=== PATIENT | male | born 1990 | race Caucasian/White ===

== ENCOUNTER → 2024-03-15 | Outpatient (CLI) | payer OTHER, MEDICAID, SELFPAY ==
[2024-03-15 10:55] LABS: Basophils % (Auto) 0 % (0-2.5); Eosinophils # (Auto) 0.1 Thou/mm3 (0.0-0.5); Eosinophils % (Auto) 1 % (0-10); Hematocrit 49.5 % (41.0-53.0); Immature Granulocytes % (Auto) 0 % (0-0); Immature Granulocytes Auto 0.01 Thou/mm3 (0.00-0.00); Lymphocytes # (Auto) 2.4 Thou/mm3 (1.0-4.8); Lymphocytes % (Auto) 33 % (10-50); Mean Corpuscular HGB Conc 34.3 g/dl (31.0-37.0); Mean Corpuscular Volume 85 fL (80-100); Monocytes # (Auto) 0.6 Thou/mm3 (0.0-0.8); Monocytes % (Auto) 8 % (0-12); Neutrophils # (Auto) 4.1 Thou/mm3 (1.8-7.7); Neutrophils % (Auto) 57 % (37-80); Nucleated Red Blood Cell % 0 /100 WBC (0); Platelet Count 307 Thou/mm3 (140-440); RDW Standard Deviation 38.7 fL (35.1-43.9); Red Blood Count 5.86 Miln/mm3 (4.50-5.90); White Blood Count 7.2 Thou/mm3 (3.8-10.6)
[2024-03-15 11:11] LABS: Alanine Aminotransferase 43 U/L (10-49); Albumin, Serum 4.9 gm/dL (3.5-5.0); Alkaline Phosphatase 91 U/L (46-116); Anion Gap 7 (7-16); Aspartate Amino Transferase 15 U/L (0-34); BUN/Creatinine Ratio 14 Ratio (12-20); Bilirubin,Total 0.6 mg/dL (0.3-1.2); Blood Urea Nitrogen 13 mg/dL (9-23); Calcium 10.4 mg/dL (8.3-10.6); Calcium (Corrected) 10.4 mg/dL (8.5-10.1); Carbon Dioxide 26.7 mMol/L (20.0-31.0); Chloride 107 mMol/L (98-107); Creatinine (Component) 0.9 mg/dL (0.6-1.3); Globulin 2.5 gm/dL (2.3-3.5); Glucose 97 mg/dL (74-106); Osmolality,Calculated 281 (275-295); Potassium 4.2 mMol/L (3.4-5.1); Sodium 141 mMol/L (136-145); Total Protein 7.4 gm/dL (5.7-8.2); eGFR > 60 See Note
== END | disposition home or self-care (01) ==
LOC: SCTO 09:56
PROVIDERS: PCP Family Medicine; Referring Provider Nurse Practitioner Family; Visit Provider Nurse Practitioner Family
DX: D58.2 Other hemoglobinopathies (principal)
CPT/HCPCS: 36415; 80053; 85025

== ENCOUNTER 2024-03-24 14:00 | Outpatient (RCR) | payer OTHER, MEDICAID, SELFPAY | END 2024-04-13 23:59 | disposition home or self-care (01) | LOC: SCTC 14:00 | PROVIDERS: PCP Family Medicine; Referring Provider Family Medicine; Visit Provider Nurse Practitioner Family | DX: D75.1 Secondary polycythemia (principal); G80.9 Cerebral palsy, unspecified; Z99.3 Dependence on wheelchair; Z98.2 Presence of cerebrospinal fluid drainage device; I10 Essential (primary) hypertension | CPT/HCPCS: 99212; G0463 ==

== ENCOUNTER → 2024-06-10 | Outpatient (CLI) | payer MEDICARE, MEDICAID, SELFPAY ==
--- NOTE | 2024-06-10 07:30 | XR_ITS ---
Examination: CT brain head without contrast. 2-D sagittal coronal reconstructions Date and time of exam:June 10, 2024 0818 hrs. Comparison July 16, 2021 Diagnosis hydrocephalus seizures noted on May 07, 2024 CTDI: vol (mGy):49.4 DLP: (mGycm):985 Technique: Multiple CT axial sections of the brain have been obtained, 5 mm slice thickness. Contrast has not been administered. 2-D sagittal, coronal reconstructions have been obtained Low dose protocols were performed. One or more of the following dose reduction techniques were used; automated exposure control, adjustment of the mA and/or KV according to patient size, use of iterative reconstruction technique. Findings: No significant ventricular enlargement. Stable large area of encephalomalacia in the left posterior temporal parietal lobe The shunt tube tip projects in the anterior margin of the large area of encephalomalacia The ventricles are not enlarged There is shift of the frontal horns to the left 5 mm which likely relates to the large area of encephalomalacia in the left cerebral hemisphere Intra-axial or extra-axial hemorrhage density is not seen. Cranial vault intact. Impression: No interval acute hemorrhage,. Stable large area of encephalomalacia left cerebral hemisphere
== END | disposition home or self-care (01) ==
PROVIDERS: PCP Family Medicine; Referring Provider Psychiatry & Neurology Neurology; Visit Provider Psychiatry & Neurology Neurology
DX: G93.89 Other specified disorders of brain (principal)
CPT/HCPCS: 70450

== ENCOUNTER 2024-06-24 13:54 | Outpatient (RCR) | payer MEDICARE, MEDICAID, SELFPAY ==
--- NOTE | 2024-07-18 18:49 | CTCFLWUP_ITS ---
Patient: PEGGY SOLIS : 1990 Page 2 of 4 FOLLOW UP NOTE DATE OF SERVICE: 06/24/2024 NAME: PEGGY SOLIS ACCOUNT: [id number] : 1990 AGE: 34 INTERVAL HISTORY: PREVIOUS NOTE: Mr. Luis Miguel Solis is a 34-year-old Telugu-speaking male with a past medical history of cerebral palsy PAY CLERK shunt, patient follows up with neurologist Dr Walters. Patient mother states patient was referred due to elevated hemoglobin on 12/31/2022 was 17.4 red blood cancellous 6.09. ? 08/22/2021: Hemoglobin 17.7, hematocrit 52.7, MCV 86, platelet count 257,000, ANC 4.5, red blood count 6.16 12/31/2022 hemoglobin 17.4 hematocrit 51.6 MCV 85 platelet count 249,000 ANC 5.2 Red blood count 6.09 03/10/2023: Hemoglobin 17.1, hematocrit 50.8, MCV 85, platelet count 227,000, ANC 4.5, red blood count 6.01, WBC 7.9, JAK2 negative, erythropoietin level 9.0 06/17/2023: Hemoglobin 17.7, hematocrit 52.5, MCV 85, platelet count 280,000, ANC 4.5, red blood count 6.20, WBC 7.5 09/11/2023: Hemoglobin 17.1, hematocrit 49.8, MCV 83, platelet count 206,000, ANC 4.5, RBC 6.0, WBC 7.8 03/15/2024: Hemoglobin 17.0, hematocrit 49.5, MCV 85, platelet count 307,000, ANC 4.1, WBC 7 point ONCOLOGY HISTORY: Not applicable INTERVAL HISTORY: PREVIOUS NOTE: Mr. Luis Miguel Solis is a 34-year-old Telugu-speaking male with a past medical history of cerebral palsy PAY CLERK shunt, patient follows up with neurologist Dr Walters. Patient mother states patient was referred due to elevated hemoglobin on 12/31/2022 was 17.4 red blood cancellous 6.09. ? 08/22/2021: Hemoglobin 17.7, hematocrit 52.7, MCV 86, platelet count 257,000, ANC 4.5, red blood count 6.16 12/31/2022 hemoglobin 17.4 hematocrit 51.6 MCV 85 platelet count 249,000 ANC 5.2 Red blood count 6.09 03/10/2023: Hemoglobin 17.1, hematocrit 50.8, MCV 85, platelet count 227,000, ANC 4.5, red blood count 6.01, WBC 7.9, JAK2 negative, erythropoietin level 9.0 06/17/2023: Hemoglobin 17.7, hematocrit 52.5, MCV 85, platelet count 280,000, ANC 4.5, red blood count 6.20, WBC 7.5 09/11/2023: Hemoglobin 17.1, hematocrit 49.8, MCV 83, platelet count 206,000, ANC 4.5, RBC 6.0, WBC 7.8 03/15/2024: Hemoglobin 17.0, hematocrit 49.5, MCV 85, platelet count 307,000, ANC 4.1, WBC 7 point DIAGNOSIS: Erythrocytosis JAK2 negative, 03/10/2023 Erythropoietin level 9.0, 03/10/2023 DATE OF DIAGNOSIS: STAGE/TNM: TREATMENT HISTORY: Care?Plan Start?Date Cycle Day Intent HISTORY OF PRESENT ILLNESS: OTHER MEDICAL HISTORY/CONDITIONS: PAY CLERK?SHUNT Cerebral palsy Hypertension FAMILY HISTORY: Patient?denies?family?cancer?history. 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 amlodipine - 5 mg 1 tab Daily 2. levETIRAcetam - 100 mg/mL 1 Twice a Day 3. metoprolol succinate - 50 mg 1 tab Daily Medications Last Reconciled by Jeanne Grissom MA on 06/24/2024 ALLERGIES: No Known Drug Allergies REVIEW OF SYSTEMS: A complete 14-point review of systems was performed and is negative except as noted in interval history. PHYSICAL EXAMINATION: VITAL SIGNS: Temperature?96.7, B/P?155/99, Oxygen?Saturation?98% PAIN: 0 - No pain ECOG Performance Status: 0 - Asymptomatic and fully active GENERAL APPEARANCE: Appears well, in no apparent distress HEENT: Healed surgical scar from PAY CLERK shunt, normal conjunctiva CARDIOVASCULAR: Normal heart sounds PULMONARY: Normal respiratory effort, no respiratory distress or use of accessory muscles, no tachypnea. EXTREMITIES: No pedal edema or cyanosis. SKIN: Normal skin appearance. NEUROLOGIC: CP . PSHYCHIATRIC: Cooperative LABORATORY DATA: I have personally reviewed and interpreted each of the patient?s relevant lab tests, abnormal findings are below: Date 03/15/24 06/15/24 ??WHITE?BLOOD?COUNT?(Thou/mm3) 7.2 7.2 ??RED?BLOOD?COUNT?(Miln/mm3) 5.86 5.81 ??HEMOGLOBIN?(gm/dl) 17.0?H 16.8?H ??HEMATOCRIT?(%) 49.5 49.5 ??PLATELET?COUNT?(Thou/mm3) 307 269 ??NEUTROPHILS?%,?AUTO?(%) 57 57 ??LYMPH?%,?AUTO?(%) 33 34 ??NEUTROPHILS,?AUTO?(Thou/mm3) 4.1 4.1 ??GLUCOSE,RANDOM?(mg/dL) 97 93 ??BLOOD?UREA?NITROGEN?(mg/dL) 13 12 ??CREATININE?(mg/dL) 0.90 1.00 ??SODIUM?(mmol/L) 141 143 ??POTASSIUM?(mmol/L) 4.2 4.4 ??CHLORIDE?(mmol/L) 107 107 ??CrCl?(CandG)?(ml/min) 106.82 88.45 ??AST/SGOT?(Unit/L) 15 21 ??ALT/SGPT?(Unit/L) 43 43 ??ALKALINE?PHOSPHATASE?(Unit/L) 91 86 ??BILIRUBIN,?TOTAL?(mg/dL) 0.6 0.4 ??PROTEIN?TOTAL?(gm/dl) 7.4 7.2 ??ALBUMIN,?SERUM?(gm/dl) 4.9 4.8 ??GLOBULIN?(gm/dl) 2.5 2.4 ??ALBUMIN/GLOBULIN?RATIO 2.0 2.0 ??CALCIUM,?SERUM?(mg/dL) 10.4 10.1 ??CALCIUM?SERUM?(CORRECTED)?(mg/dL) 10.4?H 10.1 ASSESSMENT/PLAN: 1. Erythrocytosis, hemoglobin 17.0, hematocrit 49.5. Advised phlebotomy to keep hct below 45 Orders placed Cnt to follow with cbc 2. Cerebral palsy, PAY CLERK shunt, wheelchair-bound. Hypertension Continue following up with PCP for manage CBC CMP erythropoietin HFE prior to next follow-up appointment ORDERS: Order # Description [id number] CBC with Auto Diff + MD Follow Up 3 Months RETURN TO CLINIC: 3 months BILLING AND COMPLIANCE: I reviewed external records from providers outside my specialty as summarized above. I spent a total of 50 minutes on this patient?s care on the day of their visit excluding time spent related to any billed procedures. This time includes time spent with the patient as well as time spent documenting in the medical record, reviewing patients records and tests, obtaining history, placing orders, communicating with other healthcare professionals, counseling the patient, family or caregiver, and/or care coordination for the diagnoses above. Electronically Signed by: Andrew Butterfield MD T: 6:47 PM CC: PCP: Woody Navarro Referring: Woody Navarro This document was completed utilizing speech recognition software. Grammatical errors, random word insertions, pronoun errors, and incomplete sentences are an occasional consequence of this system due to software limitations, ambient noise, and hardware issues. Any formal questions or concerns about the content, text or information contained within the body of this dictation should be directly addressed to the provider for clarification.
== END 2024-07-12 23:59 | disposition home or self-care (01) ==
LOC: SCTC 13:54
PROVIDERS: PCP Family Medicine; Referring Provider Family Medicine; Visit Provider Internal Medicine Hematology & Oncology
DX: D58.2 Other hemoglobinopathies (principal); G80.9 Cerebral palsy, unspecified; Z99.3 Dependence on wheelchair; Z98.2 Presence of cerebrospinal fluid drainage device; I10 Essential (primary) hypertension
CPT/HCPCS: 99212; G0463

== ENCOUNTER → 2024-08-11 | Outpatient (CLI) | payer MEDICARE, MEDICAID, SELFPAY ==
[2024-08-11 10:59] LABS: Basophils % (Auto) 0 % (0-2.5); Eosinophils # (Auto) 0.1 Thou/mm3 (0.0-0.5); Eosinophils % (Auto) 2 % (0-10); Hematocrit 48.6 % (41.0-53.0); Hemoglobin 16.8 g/dL (13.5-16.0); Immature Granulocytes % (Auto) 0 % (0-0); Immature Granulocytes Auto 0.03 Thou/mm3 (0.00-0.00); Lymphocytes # (Auto) 2.3 Thou/mm3 (1.0-4.8); Lymphocytes % (Auto) 31 % (10-50); Mean Corpuscular HGB Conc 34.6 g/dl (31.0-37.0); Mean Corpuscular Hemoglobin 29.9 pg (25.0-35.0); Mean Corpuscular Volume 87 fL (80-100); Monocytes # (Auto) 0.5 Thou/mm3 (0.0-0.8); Monocytes % (Auto) 7 % (0-12); Neutrophils # (Auto) 4.4 Thou/mm3 (1.8-7.7); Neutrophils % (Auto) 60 % (37-80); Nucleated Red Blood Cell % 0 /100 WBC (0); Platelet Count 276 Thou/mm3 (140-440); RDW Standard Deviation 38.7 fL (35.1-43.9); Red Blood Count 5.61 Miln/mm3 (4.50-5.90); White Blood Count 7.4 Thou/mm3 (3.8-10.6)
[2024-08-11 11:18] LABS: Alanine Aminotransferase 33 U/L (10-49); Albumin, Serum 4.8 gm/dL (3.5-5.0); Albumin/Globulin Ratio 1.7 (1.2-2.2); Alkaline Phosphatase 91 U/L (46-116); Anion Gap 11 (7-16); Aspartate Amino Transferase 21 U/L (0-34); BUN/Creatinine Ratio 12 Ratio (12-20); Bilirubin,Total 0.3 mg/dL (0.3-1.2); Blood Urea Nitrogen 12 mg/dL (9-23); Calcium 9.7 mg/dL (8.3-10.6); Calcium (Corrected) 9.7 mg/dL (8.5-10.1); Carbon Dioxide 21.8 mMol/L (20.0-31.0); Chloride 105 mMol/L (98-107); Globulin 2.8 gm/dL (2.3-3.5); Glucose 123 mg/dL (74-106); Osmolality,Calculated 276 (275-295); Potassium 3.8 mMol/L (3.4-5.1); Sodium 138 mMol/L (136-145); Total Protein 7.6 gm/dL (5.7-8.2); eGFR > 60 See Note
== END | disposition home or self-care (01) ==
LOC: SCTO 09:26
PROVIDERS: PCP Family Medicine; Referring Provider Nurse Practitioner Family; Visit Provider Nurse Practitioner Family
DX: D58.2 Other hemoglobinopathies (principal)
CPT/HCPCS: 36415; 80053; 85025

== ENCOUNTER → 2024-09-14 | Outpatient (CLI) | payer MEDICARE, MEDICAID, SELFPAY ==
[2024-09-14 09:51] LABS: Basophils % (Auto) 1 % (0-2.5); Eosinophils # (Auto) 0.1 Thou/mm3 (0.0-0.5); Eosinophils % (Auto) 2 % (0-10); Hematocrit 49.1 % (41.0-53.0); Hemoglobin 16.7 g/dL (13.5-16.0); Immature Granulocytes % (Auto) 0 % (0-0); Immature Granulocytes Auto 0.03 Thou/mm3 (0.00-0.00); Lymphocytes # (Auto) 2.8 Thou/mm3 (1.0-4.8); Lymphocytes % (Auto) 37 % (10-50); Mean Corpuscular Hemoglobin 29.6 pg (25.0-35.0); Mean Corpuscular Volume 87 fL (80-100); Monocytes # (Auto) 0.5 Thou/mm3 (0.0-0.8); Monocytes % (Auto) 6 % (0-12); Neutrophils % (Auto) 54 % (37-80); Nucleated Red Blood Cell % 0 /100 WBC (0); Platelet Count 298 Thou/mm3 (140-440); RDW Standard Deviation 38.6 fL (35.1-43.9); Red Blood Count 5.65 Miln/mm3 (4.50-5.90); White Blood Count 7.5 Thou/mm3 (3.8-10.6)
== END | disposition home or self-care (01) ==
LOC: SCTO 08:34
PROVIDERS: PCP Family Medicine; Referring Provider Internal Medicine Hematology & Oncology; Visit Provider Internal Medicine Hematology & Oncology
DX: D58.2 Other hemoglobinopathies (principal)
CPT/HCPCS: 36415; 85025

== ENCOUNTER → 2024-09-17 | Outpatient (CLI) | payer MEDICARE, MEDICAID, SELFPAY ==
--- NOTE | 2024-09-17 10:20 | XR_ITS ---
Examination: Venous duplex lower extremity sonogram, bilateral. Date and time of exam: September 17, 2024 1035 hours INDICATIONS: Bilateral ankle swelling beginning one week ago Technique: Multiple sonographic images of the deep venous system have been obtained. B-mode/2-D grayscale imaging of vascular structures and Doppler spectral analysis (waveforms) and color performed Both legs are examined. Findings: Deep venous systems do not demonstrate abnormal echogenicity. Nondiagnostic visualization proximal left superficial femoral vein left common femoral vein greater saphenous vein bilaterally All visualized deep veins exhibit compressibility. All visualized deep veins exhibit augmentation. Impression: Limited study No DVT demonstrated
== END | disposition home or self-care (01) ==
PROVIDERS: PCP Family Medicine; Referring Provider Student in an Organized Health Care Education/Training Program; Visit Provider Student in an Organized Health Care Education/Training Program
DX: R22.43 Localized swelling, mass and lump, lower limb, bilateral (principal)
CPT/HCPCS: 93970

== ENCOUNTER → 2024-12-24 | Outpatient (CLI) | payer MEDICARE, MEDICAID, SELFPAY ==
[2024-12-24 10:31] LABS: Basophils # (Auto) 0.1 Thou/mm3 (0.0-0.2); Basophils % (Auto) 1 % (0-2.5); Eosinophils # (Auto) 0.3 Thou/mm3 (0.0-0.5); Eosinophils % (Auto) 3 % (0-10); Hematocrit 50.5 % (41.0-53.0); Hemoglobin 17.3 g/dL (13.5-16.0); Immature Granulocytes Auto 0.04 Thou/mm3 (0.00-0.00); Lymphocytes # (Auto) 3.6 Thou/mm3 (1.0-4.8); Lymphocytes % (Auto) 38 % (10-50); Mean Corpuscular HGB Conc 34.3 g/dl (31.0-37.0); Mean Corpuscular Hemoglobin 29.2 pg (25.0-35.0); Mean Corpuscular Volume 85 fL (80-100); Monocytes # (Auto) 0.6 Thou/mm3 (0.0-0.8); Monocytes % (Auto) 7 % (0-12); Neutrophils # (Auto) 4.8 Thou/mm3 (1.8-7.7); Neutrophils % (Auto) 51 % (37-80); Nucleated Red Blood Cell # 0.00 Thou/mm3 (0.00-0.00); Nucleated Red Blood Cell % 0 /100 WBC (0); Platelet Count 205 Thou/mm3 (140-440); RDW Standard Deviation 38.4 fL (35.1-43.9); Red Blood Count 5.92 Miln/mm3 (4.50-5.90); White Blood Count 9.4 Thou/mm3 (3.8-10.6)
[2024-12-24 10:43] LABS: Glucose Estimated Average 105 mg/dL (80-131); Hemoglobin A1C 5.3 % Hgb (4.8-6.0)
== END | disposition home or self-care (01) ==
LOC: COPL 08:45
PROVIDERS: PCP Internal Medicine; Referring Provider Internal Medicine; Visit Provider Internal Medicine
DX: G80.9 Cerebral palsy, unspecified (principal); D45 Polycythemia vera; G40.89 Other seizures; I10 Essential (primary) hypertension
CPT/HCPCS: 36415; 80053; 80061; 83036; 84443; 85025

== ENCOUNTER 2024-12-27 13:59 | Outpatient (RCR) | payer MEDICARE, MEDICAID, SELFPAY ==
--- NOTE | 2024-12-27 15:55 | CTCFLWUP_ITS ---
Patient: PEGGY SOLIS : 1990 Page 2 of 4 FOLLOW UP NOTE DATE OF SERVICE: 12/27/2024 NAME: PEGGY SOLIS ACCOUNT: [id number] : 1990 AGE: 34 INTERVAL HISTORY: Patient is following for erythrocytosis. JAK2 negative, erythropoietin level 9.0 and all other test have been negative. Patient has not completed sleep study. Patient is very reluctant. Patient has been getting phlebotomy every 3 months and is not at goal. Patient will be started on phlebotomy every 3 to 4 weeks which he agreed to. Patient does not want to come every week. Understand the risk of stroke heart attack. Patient was seen by with his mother and brother who is a primary caregiver. Family endorsed understanding. 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 amlodipine - 5 mg 1 tab Daily 2. levETIRAcetam - 100 mg/mL 1 Twice a Day 3. metoprolol succinate - 50 mg 1 tab Daily Medications Last Reconciled by Shobha Vasquez MA on 12/27/2024 ALLERGIES: No Known Drug Allergies REVIEW OF SYSTEMS: A complete 14-point review of systems was performed and is negative except as noted in interval history. PHYSICAL EXAMINATION: VITAL SIGNS: Temperature?98.8, B/P?142/83, Oxygen?Saturation?97% PAIN: 0 - No pain ECOG Performance Status: 3 - Symptomatic; limited self-care; spends >50% of time in bed, not bedridden GENERAL APPEARANCE: Appears well, in no apparent distress HEENT: Healed surgical scar from CUTTER INSPECTOR shunt, normal conjunctiva CARDIOVASCULAR: Normal heart sounds PULMONARY: Normal respiratory effort, no respiratory distress or use of accessory muscles, no tachypnea. EXTREMITIES: No pedal edema or cyanosis. SKIN: Normal skin appearance. NEUROLOGIC: CP . PSHYCHIATRIC: Cooperative LABORATORY DATA: I have personally reviewed and interpreted each of the patient?s relevant lab tests, abnormal findings are below: Date 08/11/24 09/14/24 12/24/24 12/27/24 ??WHITE?BLOOD?COUNT?(Thou/mm3) 7.4 7.5 9.4 ? ??RED?BLOOD?COUNT?(Miln/mm3) 5.61 5.65 5.92?H ? ??HEMOGLOBIN?(gm/dl) 16.8?H 16.7?H 17.3?H ? ??HEMATOCRIT?(%) 48.6 49.1 50.5 ? ??PLATELET?COUNT?(Thou/mm3) 276 298 205 ? ??NEUTROPHILS?%,?AUTO?(%) 60 54 51 ? ??LYMPH?%,?AUTO?(%) 31 37 38 ? ??NEUTROPHILS,?AUTO?(Thou/mm3) 4.4 4.0 4.8 ? ??GLUCOSE,RANDOM?(mg/dL) ? ? ? 109?H ??BLOOD?UREA?NITROGEN?(mg/dL) ? ? ? 12 ??CREATININE?(mg/dL) ? ? ? 1.00 ??SODIUM?(mmol/L) ? ? ? 142 ??POTASSIUM?(mmol/L) ? ? ? 4.0 ??CHLORIDE?(mmol/L) ? ? ? 106 ??CrCl?(CandG)?(ml/min) ? ? ? 88.45 ??AST/SGOT?(Unit/L) ? ? ? 20 ??ALT/SGPT?(Unit/L) ? ? ? 38 ??ALKALINE?PHOSPHATASE?(Unit/L) ? ? ? 89 ??BILIRUBIN,?TOTAL?(mg/dL) ? ? ? 0.4 ??PROTEIN?TOTAL?(gm/dl) ? ? ? 7.0 ??ALBUMIN,?SERUM?(gm/dl) ? ? ? 4.8 ??GLOBULIN?(gm/dl) ? ? ? 2.2?L ??ALBUMIN/GLOBULIN?RATIO ? ? ? 2.2 ??CALCIUM,?SERUM?(mg/dL) ? ? ? 9.9 ??CALCIUM?SERUM?(CORRECTED)?(mg/dL) ? ? ? 9.9 ASSESSMENT/PLAN: 1. Erythrocytosis, hemoglobin 17.0, hematocrit 49.5. Changed phlebotomy orders to be done every 3 to 4 weeks Discussed the importance of sleep study Patient gets up multiple times at night from her sleep He was diagnosed with sleep apnea in the past Patient seems to take frequent naps in the daytime Is fatigued and irritable in the daytime Mother has noticed snoring Ordered sleep study to evaluate for sleep apnea ORDERS: Order # Description [id number] Therapeutic Phlebotomy, 1 Unit [id number] Comprehensive Metabolic Panel - 12 + CBC with Auto Diff + MD Follow Up 3 Months RETURN TO CLINIC: I reviewed the diagnosis, prognosis, and recommended treatment/procedure options with the patient (and/or their legal it sales representative), including the potential benefits, risks, side effects and alternative therapies. We also discussed the option of no treatment and the possibility of clinical trial participation, if applicable. All questions were addressed, and they demonstrated understanding. They provided informed consent to proceed with the proposed plan of care. BILLING AND COMPLIANCE: I reviewed external records from providers outside my specialty as summarized above. I spent a total of 50 minutes on this patient?s care on the day of their visit excluding time spent related to any billed procedures. This time includes time spent with the patient as well as time spent documenting in the medical record, reviewing patients records and tests, obtaining history, placing orders, communicating with other healthcare professionals, counseling the patient, family or caregiver, and/or care coordination for the diagnoses above. Electronically Signed by: Andrew Butterfield MD T: 3:53 PM CC: Ricardo?Rakesh?Neeta,? PCP: Ricardo Gongora Referring: Ricardo Gongora This document was completed utilizing speech recognition software. Grammatical errors, random word insertions, pronoun errors, and incomplete sentences are an occasional consequence of this system due to software limitations, ambient noise, and hardware issues. Any formal questions or concerns about the content, text or information contained within the body of this dictation should be directly addressed to the provider for clarification.
== END 2025-01-11 23:59 | disposition home or self-care (01) ==
LOC: SCTC 13:59
PROVIDERS: PCP Internal Medicine; Referring Provider Internal Medicine; Visit Provider Internal Medicine Hematology & Oncology
DX: D75.1 Secondary polycythemia (principal); R06.83 Snoring; R53.83 Other fatigue
CPT/HCPCS: 99212; G0463

== ENCOUNTER → 2024-12-27 | Outpatient (CLI) | payer MEDICARE, MEDICAID, SELFPAY ==
[2024-12-27 11:10] LABS: Alanine Aminotransferase 38 U/L (10-49); Albumin, Serum 4.8 gm/dL (3.5-5.0); Albumin/Globulin Ratio 2.2 (1.2-2.2); Alkaline Phosphatase 89 U/L (46-116); Anion Gap 12 (7-16); Aspartate Amino Transferase 20 U/L (0-34); BUN/Creatinine Ratio 12 Ratio (12-20); Bilirubin,Total 0.4 mg/dL (0.3-1.2); Blood Urea Nitrogen 12 mg/dL (9-23); Calcium 9.9 mg/dL (8.3-10.6); Calcium (Corrected) 9.9 mg/dL (8.5-10.1); Carbon Dioxide 23.7 mMol/L (20.0-31.0); Cardiac Risk Estimate 6.9 RATIO (4.0-6.7); Chloride 106 mMol/L (98-107); Cholesterol 277 mg/dL (132-200); Creatinine (Component) 1.0 mg/dL (0.6-1.3); Globulin 2.2 gm/dL (2.3-3.5); Glucose 109 mg/dL (74-106); HDL Cholesterol 40 mg/dL (40-60); Osmolality,Calculated 283 (275-295); Potassium 4.0 mMol/L (3.4-5.1); Sodium 142 mMol/L (136-145); Thyroid Stimulating Hormone 1.87 uIU/mL (0.55-4.78); Total Protein 7.0 gm/dL (5.7-8.2); Triglycerides 437 mg/dL (30-150); eGFR > 60 See Note
== END | disposition home or self-care (01) ==
LOC: COPL 09:25
PROVIDERS: PCP Internal Medicine; Referring Provider Internal Medicine; Visit Provider Internal Medicine
DX: G80.9 Cerebral palsy, unspecified (principal); D45 Polycythemia vera; G40.89 Other seizures; I10 Essential (primary) hypertension
CPT/HCPCS: 36415; 80053; 80061; 84443

== ENCOUNTER → 2025-01-26 | Outpatient (CLI) | payer MEDICARE, MEDICAID, SELFPAY ==
[2025-01-26 11:01] LABS: Basophils # (Auto) 0.0 Thou/mm3 (0.0-0.2); Basophils % (Auto) 0 % (0-2.5); Eosinophils # (Auto) 0.2 Thou/mm3 (0.0-0.5); Eosinophils % (Auto) 2 % (0-10); Hematocrit 50.8 % (41.0-53.0); Hemoglobin 17.3 g/dL (13.5-16.0); Immature Granulocytes Auto 0.02 Thou/mm3 (0.00-0.00); Lymphocytes # (Auto) 2.4 Thou/mm3 (1.0-4.8); Lymphocytes % (Auto) 36 % (10-50); Mean Corpuscular HGB Conc 34.1 g/dl (31.0-37.0); Mean Corpuscular Hemoglobin 29.4 pg (25.0-35.0); Mean Corpuscular Volume 86 fL (80-100); Monocytes # (Auto) 0.5 Thou/mm3 (0.0-0.8); Monocytes % (Auto) 8 % (0-12); Neutrophils # (Auto) 3.6 Thou/mm3 (1.8-7.7); Neutrophils % (Auto) 53 % (37-80); Nucleated Red Blood Cell # 0.00 Thou/mm3 (0.00-0.00); Nucleated Red Blood Cell % 0 /100 WBC (0); Platelet Count 305 Thou/mm3 (140-440); RDW Standard Deviation 38.2 fL (35.1-43.9); Red Blood Count 5.89 Miln/mm3 (4.50-5.90); White Blood Count 6.7 Thou/mm3 (3.8-10.6)
[2025-01-26 11:23] LABS: Alanine Aminotransferase 110 U/L (10-49); Albumin, Serum 5.0 gm/dL (3.5-5.0); Albumin/Globulin Ratio 2.0 (1.2-2.2); Alkaline Phosphatase 105 U/L (46-116); Anion Gap 13 (7-16); Aspartate Amino Transferase 47 U/L (0-34); BUN/Creatinine Ratio 6 Ratio (12-20); Bilirubin,Total 0.4 mg/dL (0.3-1.2); Blood Urea Nitrogen 5 mg/dL (9-23); Calcium 9.8 mg/dL (8.3-10.6); Calcium (Corrected) 9.8 mg/dL (8.5-10.1); Carbon Dioxide 23.4 mMol/L (20.0-31.0); Chloride 108 mMol/L (98-107); Creatinine (Component) 0.9 mg/dL (0.6-1.3); Globulin 2.5 gm/dL (2.3-3.5); Glucose 104 mg/dL (74-106); Osmolality,Calculated 284 (275-295); Potassium 4.0 mMol/L (3.4-5.1); Sodium 144 mMol/L (136-145); Total Protein 7.5 gm/dL (5.7-8.2); eGFR > 60 See Note
== END | disposition home or self-care (01) ==
LOC: SCTO 10:10
PROVIDERS: PCP Family Medicine; Referring Provider Internal Medicine Hematology & Oncology; Visit Provider Internal Medicine Hematology & Oncology
DX: D58.2 Other hemoglobinopathies (principal)
CPT/HCPCS: 36415; 80053; 85025

== ENCOUNTER → 2025-02-23 | Outpatient (CLI) | payer MEDICARE, MEDICAID, SELFPAY ==
[2025-02-23 11:58] LABS: Basophils # (Auto) 0.0 Thou/mm3 (0.0-0.2); Basophils % (Auto) 0 % (0-2.5); Eosinophils # (Auto) 0.1 Thou/mm3 (0.0-0.5); Eosinophils % (Auto) 1 % (0-10); Hematocrit 48.1 % (41.0-53.0); Hemoglobin 16.5 g/dL (13.5-16.0); Immature Granulocytes Auto 0.02 Thou/mm3 (0.00-0.00); Lymphocytes # (Auto) 2.3 Thou/mm3 (1.0-4.8); Lymphocytes % (Auto) 25 % (10-50); Mean Corpuscular HGB Conc 34.3 g/dl (31.0-37.0); Mean Corpuscular Hemoglobin 29.2 pg (25.0-35.0); Mean Corpuscular Volume 85 fL (80-100); Monocytes # (Auto) 0.6 Thou/mm3 (0.0-0.8); Monocytes % (Auto) 7 % (0-12); Neutrophils # (Auto) 6.1 Thou/mm3 (1.8-7.7); Neutrophils % (Auto) 67 % (37-80); Nucleated Red Blood Cell # 0.00 Thou/mm3 (0.00-0.00); Nucleated Red Blood Cell % 0 /100 WBC (0); Platelet Count 320 Thou/mm3 (140-440); RDW Standard Deviation 38.1 fL (35.1-43.9); Red Blood Count 5.66 Miln/mm3 (4.50-5.90); White Blood Count 9.1 Thou/mm3 (3.8-10.6)
== END | disposition home or self-care (01) ==
LOC: SCTO 10:28
PROVIDERS: PCP Family Medicine; Referring Provider Internal Medicine Hematology & Oncology; Visit Provider Internal Medicine Hematology & Oncology
DX: D58.2 Other hemoglobinopathies (principal)
CPT/HCPCS: 36415; 80053; 85025

== ENCOUNTER → 2025-02-24 | Outpatient (CLI) | payer MEDICARE, MEDICAID, SELFPAY ==
[2025-02-24 09:45] LABS: Alanine Aminotransferase 80 U/L (10-49); Albumin, Serum 5.2 gm/dL (3.5-5.0); Albumin/Globulin Ratio 2.1 (1.2-2.2); Alkaline Phosphatase 139 U/L (46-116); Anion Gap 9 (7-16); Aspartate Amino Transferase 28 U/L (0-34); BUN/Creatinine Ratio 8 Ratio (12-20); Bilirubin,Total 0.7 mg/dL (0.3-1.2); Blood Urea Nitrogen 8 mg/dL (9-23); Calcium 10.1 mg/dL (8.3-10.6); Calcium (Corrected) 10.1 mg/dL (8.5-10.1); Carbon Dioxide 27.1 mMol/L (20.0-31.0); Chloride 108 mMol/L (98-107); Creatinine (Component) 1.0 mg/dL (0.6-1.3); Globulin 2.5 gm/dL (2.3-3.5); Glucose 93 mg/dL (74-106); Osmolality,Calculated 285 (275-295); Potassium 4.0 mMol/L (3.4-5.1); Sodium 144 mMol/L (136-145); Total Protein 7.7 gm/dL (5.7-8.2); eGFR > 60 See Note
== END | disposition home or self-care (01) ==
LOC: SCTO 08:26
PROVIDERS: PCP Family Medicine; Referring Provider Internal Medicine Hematology & Oncology; Visit Provider Internal Medicine Hematology & Oncology
DX: D58.2 Other hemoglobinopathies (principal)
CPT/HCPCS: 36415; 80053

== ENCOUNTER → 2025-03-24 | Outpatient (CLI) | payer MEDICARE, MEDICAID, SELFPAY ==
[2025-03-24 10:09] LABS: Basophils # (Auto) 0.0 Thou/mm3 (0.0-0.2); Basophils % (Auto) 0 % (0-2.5); Eosinophils # (Auto) 0.1 Thou/mm3 (0.0-0.5); Eosinophils % (Auto) 2 % (0-10); Hematocrit 48.3 % (41.0-53.0); Hemoglobin 16.6 g/dL (13.5-16.0); Immature Granulocytes Auto 0.03 Thou/mm3 (0.00-0.00); Lymphocytes # (Auto) 2.6 Thou/mm3 (1.0-4.8); Lymphocytes % (Auto) 36 % (10-50); Mean Corpuscular HGB Conc 34.4 g/dl (31.0-37.0); Mean Corpuscular Hemoglobin 29.2 pg (25.0-35.0); Mean Corpuscular Volume 85 fL (80-100); Monocytes # (Auto) 0.6 Thou/mm3 (0.0-0.8); Monocytes % (Auto) 9 % (0-12); Neutrophils # (Auto) 3.8 Thou/mm3 (1.8-7.7); Neutrophils % (Auto) 53 % (37-80); Nucleated Red Blood Cell # 0.00 Thou/mm3 (0.00-0.00); Nucleated Red Blood Cell % 0 /100 WBC (0); Platelet Count 316 Thou/mm3 (140-440); RDW Standard Deviation 38.7 fL (35.1-43.9); Red Blood Count 5.68 Miln/mm3 (4.50-5.90); White Blood Count 7.2 Thou/mm3 (3.8-10.6)
[2025-03-24 10:35] LABS: Alanine Aminotransferase 67 U/L (10-49); Albumin, Serum 4.9 gm/dL (3.5-5.0); Albumin/Globulin Ratio 1.8 (1.2-2.2); Alkaline Phosphatase 128 U/L (46-116); Anion Gap 13 (7-16); Aspartate Amino Transferase 38 U/L (0-34); BUN/Creatinine Ratio 9 Ratio (12-20); Bilirubin,Total 0.6 mg/dL (0.3-1.2); Blood Urea Nitrogen 9 mg/dL (9-23); Calcium 9.6 mg/dL (8.3-10.6); Calcium (Corrected) 9.6 mg/dL (8.5-10.1); Carbon Dioxide 25.3 mMol/L (20.0-31.0); Chloride 106 mMol/L (98-107); Creatinine (Component) 1.0 mg/dL (0.6-1.3); Globulin 2.8 gm/dL (2.3-3.5); Glucose 103 mg/dL (74-106); Osmolality,Calculated 285 (275-295); Potassium 4.7 mMol/L (3.4-5.1); Sodium 144 mMol/L (136-145); Total Protein 7.7 gm/dL (5.7-8.2); eGFR > 60 See Note
== END | disposition home or self-care (01) ==
LOC: SCTO 09:04
PROVIDERS: PCP Family Medicine; Referring Provider Internal Medicine Hematology & Oncology; Visit Provider Internal Medicine Hematology & Oncology
DX: D58.2 Other hemoglobinopathies (principal)
CPT/HCPCS: 36415; 80053; 85025

== ENCOUNTER 2025-03-28 14:25 | Outpatient (RCR) | payer MEDICARE, MEDICAID, SELFPAY ==
--- NOTE | 2025-03-29 07:03 | CTCFLWUP_ITS ---
Patient: PEGGY SOLIS : 1990 Page 2 of 2 FOLLOW UP NOTE DATE OF SERVICE: 03/28/2025 NAME: PEGGY SOLIS ACCOUNT: [id number] : 1990 AGE: 34 INTERVAL HISTORY: Summary patient is following for erythrocytosis. JAK2 negative, erythropoietin level 9.0 and all other test have been negative. Patient has not completed sleep study. Patient is very reluctant patient and family have phlebotomy since the last visit. Patient understand the risk of stroke heart attack. Patient was seen by with his mother and brother who is a primary caregiver. Family endorsed understanding. Continue to phlebotomize 3 to 4 weeks to keep hematocrit below 45. Patient also need to complete sleep study ONCOLOGY HISTORY: DIAGNOSIS: Erythrocytosis JAK2 negative, 03/10/2023 Erythropoietin level 9.0, 03/10/2023 DATE OF DIAGNOSIS: And not applicable STAGE/TNM: Not applicable TREATMENT HISTORY: Care?Plan Start?Date Cycle Day Intent HISTORY OF PRESENT ILLNESS: Patient is a 34-year-old male. Patient had cerebral palsy and is wheelchair- bound and being taken care by his mother and brother. Patient was referred to us for increased hematocrit. No history of blood clot. 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 amlodipine - 5 mg 1 tab Daily 2. levETIRAcetam - 100 mg/mL 1 Twice a Day 3. metoprolol succinate - 50 mg 1 tab Daily?[place] Meds? Medications Last Reconciled by Shobha Mg MD on 03/28/2025 ALLERGIES: No Known Drug Allergies REVIEW OF SYSTEMS: A complete 14-point review of systems was performed and is negative except as noted in interval history. PHYSICAL EXAMINATION:?CloneBlock PE? VITAL SIGNS: Temperature?97.2, B/P?144/91, Oxygen?Saturation?97% PAIN: 0 - No pain ECOG Performance Status: 3 - Symptomatic; limited self-care; spends >50% of time in bed, not bedridden GENERAL APPEARANCE: Appears well, in no apparent distress HEENT: Healed surgical scar from MORNING NEWS ANCHOR shunt, normal conjunctiva CARDIOVASCULAR: Normal heart sounds PULMONARY: Normal respiratory effort, no respiratory distress or use of accessory muscles, no tachypnea. EXTREMITIES: No pedal edema or cyanosis. SKIN: Normal skin appearance. NEUROLOGIC: CP . PSHYCHIATRIC: Cooperative LABORATORY DATA: I have personally reviewed and interpreted each of the patient?s relevant lab tests, abnormal findings are below: Date 02/23/25 02/24/25 03/24/25 ??WHITE?BLOOD?COUNT?(Thou/mm3) 9.1 ? 7.2 ??RED?BLOOD?COUNT?(Miln/mm3) 5.66 ? 5.68 ??HEMOGLOBIN?(gm/dl) 16.5?H ? 16.6?H ??HEMATOCRIT?(%) 48.1 ? 48.3 ??PLATELET?COUNT?(Thou/mm3) 320 ? 316 ??NEUTROPHILS?%,?AUTO?(%) 67 ? 53 ??LYMPH?%,?AUTO?(%) 25 ? 36 ??NEUTROPHILS,?AUTO?(Thou/mm3) 6.1 ? 3.8 ??GLUCOSE,RANDOM?(mg/dL) ? 93 103 ??BLOOD?UREA?NITROGEN?(mg/dL) ? 8?L 9 ??CREATININE?(mg/dL) ? 1.00 1.00 ??SODIUM?(mmol/L) ? 144 144 ??POTASSIUM?(mmol/L) ? 4.0 4.7 ??CHLORIDE?(mmol/L) ? 108?H 106 ??CrCl?(CandG)?(ml/min) ? 88.45 88.45 ??AST/SGOT?(Unit/L) ? 28 38?H ??ALT/SGPT?(Unit/L) ? 80?H 67?H ??ALKALINE?PHOSPHATASE?(Unit/L) ? 139?H 128?H ??BILIRUBIN,?TOTAL?(mg/dL) ? 0.7 0.6 ??PROTEIN?TOTAL?(gm/dl) ? 7.7 7.7 ??ALBUMIN,?SERUM?(gm/dl) ? 5.2?H 4.9 ??GLOBULIN?(gm/dl) ? 2.5 2.8 ??ALBUMIN/GLOBULIN?RATIO ? 2.1 1.8 ??CALCIUM,?SERUM?(mg/dL) ? 10.1 9.6 ??CALCIUM?SERUM?(CORRECTED)?(mg/dL) ? 10.1 9.6 ASSESSMENT/PLAN:?[place] Assessment/Plan? 1. Erythrocytosis, hemoglobin 17.0, hematocrit 49.5. Changed phlebotomy orders to be done every 3 to 4 weeks Discussed the importance of sleep study Patient gets up multiple times at night from her sleep He was diagnosed with sleep apnea in the past Patient seems to take frequent naps in the daytime Is fatigued and irritable in the daytime Mother has noticed snoring Ordered sleep study to evaluate for sleep apnea Patient is yet to complete pulpotomy and sleep study Compliance reiterated RETURN TO CLINIC: I reviewed the diagnosis, prognosis, and recommended treatment/procedure options with the patient (and/or their legal telecommunications sales representative), including the potential benefits, risks, side effects and alternative therapies. We also discussed the option of no treatment and the possibility of clinical trial participation, if applicable. All questions were addressed, and they demonstrated understanding. They provided informed consent to proceed with the proposed plan of care. BILLING AND COMPLIANCE: I reviewed external records from providers outside my specialty as summarized above. I spent a total of 50 minutes on this patient?s care on the day of their visit excluding time spent related to any billed procedures. This time includes time spent with the patient as well as time spent documenting in the medical record, reviewing patients records and tests, obtaining history, placing orders, communicating with other healthcare professionals, counseling the patient, family or caregiver, and/or care coordination for the diagnoses above. Electronically Signed by: Andrew Butterfield MD T: 7:00 AM CC: Ricardo?Rakesh?Neeta,? PCP: Woody Navarro Referring: Woody Navarro This document was completed utilizing speech recognition software. Grammatical errors, random word insertions, pronoun errors, and incomplete sentences are an occasional consequence of this system due to software limitations, ambient noise, and hardware issues. Any formal questions or concerns about the content, text or information contained within the body of this dictation should be directly addressed to the provider for clarification.
== END 2025-04-13 23:59 | disposition home or self-care (01) ==
LOC: SCTC 14:25
PROVIDERS: PCP Family Medicine; Referring Provider Family Medicine; Visit Provider Internal Medicine Hematology & Oncology
DX: D75.1 Secondary polycythemia (principal); G47.30 Sleep apnea, unspecified
CPT/HCPCS: 99212; G0463